=== PATIENT | male | born 1965 ===

== ENCOUNTER → 2019-12-06 10:38 | Outpatient (CLI) | payer OTHER, SELFPAY ==
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
== END ==
DX: M54.2 Cervicalgia (principal)
CPT/HCPCS: 72141